=== PATIENT | male | born 1990 | race American Indian/Alaskan Native ===

== ENCOUNTER 2021-12-02 21:45 | Emergency (ER) | payer SELFPAY ==
--- NOTE | 2021-12-03 00:36 | Emergency Department Report ---
ED Abdominal Pain HPI - General Chief Complaint: Abdominal Pain Stated Complaint: ABD PAIN Time Seen by Provider: 12/02/21 23:56 Source: patient, EMS ( EMS documentation not available at time of chart dictation ), RN notes reviewed Mode of arrival: Stretcher Limitations: No Limitations - History of Present Illness Initial Comments: The patient is a 31-year-old gentleman presenting to the ER today with a complaint diffuse abdominal pain with nausea and vomiting. He denies urinary symptoms and testicular pain. He denies additional injuries and complaints. He does endorse that he consumed recreational alcohol yesterday. He is not homicidal or suicidal MD Complaint: abdominal pain -: Gradual Location: diffuse Migration to: no migration Severity scale (0 -10): 8 Quality: aching Consistency: constant Worsens With: movement - Related Data Previous Rx's Medication Instructions Recorded Last Taken Type Acetaminophen [Non-Aspirin Extra 500 mg PO Q6HR PRN #30 tablet 12/03/21 Unknown Rx Strength] Famotidine [Pepcid] 20 mg PO QDAY #30 tablet 12/03/21 Unknown Rx Ondansetron [Zofran Odt] 4 mg PO Q8HR PRN #20 tab.rapdis 12/03/21 Unknown Rx Allergies Allergy/AdvReac Type Severity Reaction Status Date / Time ibuprofen AdvReac Hives Verified 12/02/21 21:56 ED Review of Systems ROS: Stated complaint: ABD PAIN Other details as noted in HPI Constitutional: fever, malaise Eyes: denies: eye discharge ENT: denies: epistaxis Respiratory: denies: cough Cardiovascular: denies: chest pain Gastrointestinal: abdominal pain, nausea, vomiting Genitourinary: denies: dysuria, testicular pain Neurological: weakness Psychiatric: anxiety. denies: homicidal thoughts, suicidal thoughts Hematological/Lymphatic: denies: easy bleeding ED Past Medical Hx - Social History Smoking Status: Current Every Day Smoker Substance Use Type: Alcohol - Medications Home Medications: Home Medications Medication Instructions Recorded Confirmed Last Taken Type Acetaminophen [Non-Aspirin Extra 500 mg PO Q6HR PRN #30 tablet 12/03/21 Unknown Rx Strength] Famotidine [Pepcid] 20 mg PO QDAY #30 tablet 12/03/21 Unknown Rx Ondansetron [Zofran Odt] 4 mg PO Q8HR PRN #20 tab.rapdis 04/05/22 Unknown Rx ED Physical Exam - General Limitations: No Limitations General appearance: alert, anxious - Head Head exam: Present: atraumatic, normocephalic - Eye Eye exam: Present: normal appearance, EOMI. Absent: nystagmus - ENT ENT exam: Present: normal exam, normal orophraynx, mucous membranes moist, normal external ear exam - Neck Neck exam: Present: normal inspection, full ROM. Absent: tenderness, meningismus - Respiratory Respiratory exam: Present: normal lung sounds bilaterally. Absent: respiratory distress, wheezes, rales, rhonchi, stridor, decreased breath sounds - Cardiovascular Cardiovascular Exam: Present: regular rate, normal rhythm, normal heart sounds. Absent: bradycardia, tachycardia, irregular rhythm, systolic murmur, diastolic murmur, rubs, gallop - GI/Abdominal GI/Abdominal exam: Present: soft, tenderness. Absent: distended, guarding, rebound, rigid, pulsatile mass - Rectal Rectal exam: Present: deferred - Extremities Exam Extremities exam: Present: normal inspection, full ROM, other (2+ pulses noted in the bilateral upper and lower extremities. There is no palpable cord. negative Homans sign. Muscular compartments are soft. The pelvis is stable.). Absent: pedal edema, calf tenderness - Back Exam Back exam: Present: normal inspection, full ROM. Absent: tenderness, CVA tenderness (R), CVA tenderness (L), paraspinal tenderness, vertebral tenderness - Neurological Exam Neurological exam: Present: alert, oriented X3, other (No facial droop. Tongue midline. Extraocular movements intact bilaterally. Facial sensation intact to light touch in V1, V2, V3 distribution bilaterally. 5 and a 5 strength in 4 extremities. Sensation intact to light touch in 4 extremities.) - Psychiatric Psychiatric exam: Present: anxious. Absent: homicidal ideation, suicidal ideation - Skin Skin exam: Present: warm, dry, intact, normal color. Absent: rash ED Course Vital Signs 12/02/21 12/03/21 21:51 02:07 Temperature 99.1 F Pulse Rate 92 H 91 H Respiratory 16 Rate Blood Pressure 150/90 [Left] Blood Pressure 136/78 [Right] O2 Sat by Pulse 98 Oximetry - Reevaluation(s) Reevaluation #1: 12/03/21 00:35 Differential diagnosis, include but not limited to: Pancreatitis, gastritis, GERD, colitis, diverticulitis, biliary colic, appendicitis, renal colic Assessment and plan: 31-year-old gentleman, with diffuse abdominal pain, mild tenderness, with nausea and vomiting. He denies testicular pain, irritative and obstructive urinary symptoms. Obtain appropriate laboratory studies, treat symptoms, obtain CT scan of the abdomen pelvis. Reassess. Discussed this with the patient. He is agreeable to the plan of care. 12/03/21 02:24 Patient is reassessed. Laboratory studies unremarkable. Urinalysis unremarkable. No active vomiting. CT scan abdomen pelvis negative for acute findings. Patient feels improved. Discharge with supportive care and outpatient follow-up ED Medical Decision Making - Lab Data Result diagrams: 12/03/21 00:32 12/03/21 00:32 Vital Signs 12/02/21 21:51 Temperature 99.1 F Pulse Rate 92 H Respiratory 16 Rate Blood Pressure 150/90 [Left] O2 Sat by Pulse 98 Oximetry - Radiology Data Radiology results: report reviewed, image reviewed CT abdomen pelvis w con INDICATION: Acute abdominal pain with nausea and vomiting. TECHNIQUE: All CT scans at this location are performed using CT dose reduction for ALARA by means of automated exposure control. COMPARISON: None available. FINDINGS: The included lung bases are clear. The liver, gallbladder, spleen, pancreas, adrenal glands, and kidneys demonstrate no acute findings. There are no acute bowel abnormalities. The appendix is normal. The abdominal aorta is nonaneurysmal. There are no acute osseous abnormalities. IMPRESSION: 1. No acute findings. Signer Name: Alok Messina MD Signed: 12/03/2021 1:06 AM Workstation Name: [id number] Critical care attestation.: If time is entered above; I have spent that time in minutes in the direct care of this critically ill patient, excluding procedure time. ED Disposition Clinical Impression: Acute abdominal pain, History of nausea and vomiting Disposition: 01 HOME / SELF CARE / HOMELESS Is pt being admited?: No Does the pt Need Aspirin: No Condition: Good Additional Instructions: Please avoid consumption of alcohol. Avoid consumption of tobacco and smoke products. Avoid consumption of heavy and spicy foods. Minimize/avoid consumption of Motrin, ibuprofen, Naprosyn, Aleve. Take the pain medication, nausea medications as needed and directed. Do not take Metformin medication for the next 2 days, if patient takes this medication. Laboratory studies today were unremarkable for emergent findings, CT scan of the abdomen pelvis is negative/unremarkable for acute/emergent findings. Most likely diagnosis is GERD/gastritis/reflux. Follow-up with a primary care doctor within the next month. Please return to the emergency room right away with new pain, worsened pain, migration of pain, projectile vomiting, change in mental status, confusion, inability tolerate liquid feeds, new, worsened or different symptoms not present on the initial emergency room evaluation Referrals: [facility]PI [facility] MD [Primary Care Provider] - 3-5 Days Forms: Work/School Release Form(ED)
[2021-12-03] MEDS: ONDANSETRON 4 MG/2 ML INJ IV ONE (00:43)
[2021-12-03] MEDS: MORPHINE 4 MG/1 ML INJ IV ONE (00:43)
[2021-12-03] MEDS: SODIUM CHLORIDE 0.9% 1000 ML 1,000 ML IV ONE (00:43)
[2021-12-03 00:50] LABS: Basophils % (Auto) 0.3 % (0.0-1.8); Eosinophils # (Auto) 0.1 K/mm3 (0.0-0.4); Eosinophils % (Auto) 0.6 % (0.0-4.3); Hematocrit 51.7 % (35.5-45.6); Hemoglobin 16.4 gm/dl (11.8-15.2); Lymphocytes # (Auto) 0.3 K/mm3 (1.2-5.4); Lymphocytes % (Auto) 2.3 % (13.4-35.0); Mean Corpuscular HGB Conc 32 % (32-34); Mean Corpuscular Volume 76 fl (84-94); Monocytes # (Auto) 0.9 K/mm3 (0.0-0.8); Monocytes % (Auto) 7.7 % (0.0-7.3); Platelet Count 319 K/mm3 (140-440); Red Blood Count 6.81 M/mm3 (3.65-5.03); Red Cell Distribution Width 15.5 % (13.2-15.2)
[2021-12-03 01:10] LABS: Alanine Aminotransferase 27 units/L (7-56); Albumin 4.7 g/dL (3.9-5); BUN/Creatinine Ratio 10; Blood Urea Nitrogen 12 mg/dL (9-20); Calcium 9.6 mg/dL (8.4-10.2); Hemolysis Index 8
[2021-12-03 01:38] LABS: Bilirubin,Urine NEG (Negative); Blood,Urine NEG (Negative); Color,Urine Yellow (Yellow); Mucus,Urine FEW /HPF
[2021-12-03 02:08] VITALS: BP 136/78
--- NOTE | 2021-12-03 02:10 | Cat Scan Report ---
CT abdomen pelvis w con INDICATION: Acute abdominal pain with nausea and vomiting. TECHNIQUE: All CT scans at this location are performed using CT dose reduction for ALARA by means of automated e xposure control. COMPARISON: None available. FINDINGS: The included lung bases are clear. The liver, gallbladder, spleen, pancreas, adrenal glands, and kidneys demonstrate no acute findings. There are no acute bowel abnormalities. The appendix is normal. The abdominal aorta is nonaneurysmal. There are no acute osseous abnormalities. IMPRESSION: 1. No acute findings. Signer Name: Alok Messina MD Signed: 12/03/2021 2:06 AM Workstation Name: [id number]
== END 2021-12-03 03:04 | disposition home or self-care (01) ==
LOC: ED 21:45
DX: R10.84 Generalized abdominal pain (principal); R11.2 Nausea with vomiting, unspecified; F17.200 Nicotine dependence, unspecified, uncomplicated; Z72.89 Other problems related to lifestyle; Z88.6 Allergy status to analgesic agent; Z79.899 Other long term (current) drug therapy
CPT/HCPCS: 36415; 74177; 80053; 81001; 82550; 83690; 83735; 85025; 96361; 96374; 96375; 99284; J2270; J2405; J7030; Q9967; 80320; Q0162; G0480